=== PATIENT | male | born 1935 | race Caucasian/White ===

== ENCOUNTER → 2016-10-14 | Outpatient (CLI) | payer MEDICARE, OTHER | LOC: MW.CHFP 08:00 | PROVIDERS: ATTEND Student in an Organized Health Care Education/Training Program | DX: Z51.81 Encounter for therapeutic drug level monitoring (principal); Z79.01 Long term (current) use of anticoagulants; I63.512 Cerebral infarction due to unspecified occlusion or stenosis of left middle cerebral artery | CPT/HCPCS: 85610; 99211 ==

== ENCOUNTER → 2016-11-04 | Outpatient (CLI) | payer MEDICARE, OTHER | LOC: MW.CHFP 08:00 | PROVIDERS: ATTEND Student in an Organized Health Care Education/Training Program | DX: Z51.81 Encounter for therapeutic drug level monitoring (principal); Z79.01 Long term (current) use of anticoagulants; I63.50 Cerebral infarction due to unspecified occlusion or stenosis of unspecified cerebral artery; I63.512 Cerebral infarction due to unspecified occlusion or stenosis of left middle cerebral artery | CPT/HCPCS: 85610; 99211 ==

== ENCOUNTER → 2016-11-18 | Outpatient (CLI) | payer MEDICARE, OTHER | LOC: MW.CHFP 08:00 | PROVIDERS: ATTEND Student in an Organized Health Care Education/Training Program | DX: Z51.81 Encounter for therapeutic drug level monitoring (principal); Z79.01 Long term (current) use of anticoagulants; I63.50 Cerebral infarction due to unspecified occlusion or stenosis of unspecified cerebral artery; I63.512 Cerebral infarction due to unspecified occlusion or stenosis of left middle cerebral artery | CPT/HCPCS: 85610; 99211 ==

== ENCOUNTER 2019-09-21 01:20 | Emergency (ER) | payer MEDICARE, OTHER ==
--- NOTE | 2019-09-21 01:38 | EDM.PDOC ---
ED HPI GENERAL MEDICAL PROBLEM - General Chief Complaint: Neurological Problem Stated Complaint: AMB Time Seen by Provider: 09/21/19 01:22 Source of Information: Reports: Patient, Family History Limitations: Reports: No Limitations - History of Present Illness INITIAL COMMENTS - FREE TEXT/NARRATIVE: 84-year-old male with history of stroke presents with fleeting vertigo. The patient was in his bed and had about 20 minutes of a sense of room spinning and "pictures being in places that should not be." This abruptly went away and then about a half an hour later he had a 15-minute episode of the same thing. During this time he had no weakness or numbness nausea or vomiting. No vision changes or confusion. He denies any recent chest pain falls, incoordination, dysuria or fevers. Patient does have a history of stroke with no deficits. He does take Coumadin for this reason. The patient is also undergone triple bypass previously. 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: Reports: IV/IO, Other (see below) Other 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: blood sugar - Related Data Allergies Allergy/AdvReac Type Severity Reaction Status Date / Time No Known Allergies Allergy Verified 09/21/19 01:25 Home Meds: Home Meds Aspirin [Giovany Chewable] 81 mg PO DAILY 12/03/13 [History] Metoprolol Tartrate [Lopressor] 25 mg PO BID 12/03/13 [History] Rosuvastatin [Crestor] 40 mg PO QPM 12/03/13 [History] Latanoprost [Xalatan 0.005% Ophth Soln] 1 drop EYEBOTH BEDTIME 09/21/19 [History ] Warfarin [Coumadin] 2.5 mg PO ASDIRECTED 09/21/19 [History] Warfarin [Coumadin] 5 mg PO ASDIRECTED 09/21/19 [History] Zolpidem [Ambien] 0 mg PO BEDTIME PRN 09/21/19 [History] ED ROS GENERAL - Review of Systems Review Of Systems: Comprehensive ROS is negative, except as noted in HPI. ED EXAM, GENERAL - Physical Exam Exam: See Below Free Text/Narrative:: General: No acute distress. Comfortable. Heent: Examination revealed no pallor, no icterus, no lymphadenopathy. The patient normal posterior pharynx, moist mucous membranes. Neck: Supple. No JVD. No rigidity. Heart: Normal rate and rhythm. No murmurs appreciated. Lungs: Bilaterally clear to auscultation. No focal findings. Abdomen: The patient had bowel sounds present, nontender, nondistended, soft, no CVA tenderness. Neuro: Pt alert and oriented. PERRL. EOMI. Strength maintained in all four extremities. Good evaluator strength. Normal phonation without evidence of receptive or expressive pathology. No facial droop. biomedical engineering technician 2-12 intact. Normal reflexes BLEs (2+ patellar). Negative clonus. Normal power hip flexion. Normal finger to nose and rapid alternating hand movements bilaterally. Normal power below knee, plntar and dorsiflexion of the foot. No clonus BLEs. Skin: Exposed areas appeared normally perfused, warm, normal color with no meaningful rashes or lesions. Extremities: Peripheral examination revealed no pedal edema. Peripheral pulses were 2+.. EKG INTERPRETATION EKG Interpretation Comments: EKG time 1:21 AM. Atrial fibrillation rate [address] depression V5. Trace ST depression in aVF. QRS interval normal. QTc 450. No clear evidence of regional ischemia. Course - Vital Signs Text/Narrative:: Patient presents with 2 discrete episodes of vertigo while sitting in bed and moving his head. The first lasted 20 or 25 minutes and the second about 15 minutes. During his episodes there was no weakness or numbness or confusion or vision changes or any other symptoms suggestive of stroke. Furthermore the symptoms completely abated in between episodes and he has no symptoms here whatsoever. His neurological exam here is normal. It is possible to have intermittent symptoms like this for perhaps a flow dependent lesion, is highly unlikely. In having a stroke with vertiginous symptoms only is already highly highly unlikely. Accordingly, the patient is at very low risk for stroke given this presentation. Patient was watched in the emergency department for continued symptoms. Completely normal ambulation without any dizziness weakness or ataxia. Work-up is otherwise unremarkable. Patient will follow with primary care as needed and return to emergency with any worsening. Last Recorded V/S: Last Vital Signs Temp 97.1 F 09/21/19 01:22 Pulse 83 09/21/19 02:46 Resp 18 09/21/19 02:46 BP 147/62 H 09/21/19 02:46 Pulse Ox 98 09/21/19 02:46 - Orders/Labs/Meds Orders: Active Orders 24 hr Category Date Time Status UA W/ALBA RFLX IF INDICATED [URIN] Stat Lab 09/21/19 01:23 Ordered Labs: Laboratory Tests 09/21/19 09/21/19 09/21/19 Range/Units 01:33 01:33 01:33 WBC 6.73 (4.0-11.0) K/uL RBC 4.42 L (4.50-5.90) M/uL Hgb 13.8 (13.0-17.0) g/dL Hct 42.7 (38.0-50.0) % MCV 96.6 (80.0-98.0) fL MCH 31.2 (27.0-32.0) pg MCHC 32.3 (31.0-37.0) g/dL RDW Std Deviation 49.0 (28.0-62.0) fl RDW Coeff of Ludivina 14 (11.0-15.0) % Plt Count 168 (150-400) K/uL MPV 10.10 (7.40-12.00) fL Neut % (Auto) 59.5 (48.0-80.0) % Lymph % (Auto) 21.0 (16.0-40.0) % [place] % (Auto) 14.1 (0.0-15.0) % Eos % (Auto) 4.8 (0.0-7.0) % Baso % (Auto) 0.6 (0.0-1.5) % Neut # (Auto) 4.0 (1.4-5.7) K/uL Lymph # (Auto) 1.4 (0.6-2.4) K/uL [place] # (Auto) 1.0 H (0.0-0.8) K/uL Eos # (Auto) 0.3 (0.0-0.7) K/uL Baso # (Auto) 0.0 (0.0-0.1) K/uL Nucleated RBC % 0.0 /100WBC Nucleated RBCs # 0 K/uL INR 2.70 Sodium 141 (136-148) mmol/L Potassium 3.5 (3.5-5.1) mmol/L Chloride 104 (98-107) mmol/L Carbon Dioxide 25.5 (21.0-32.0) mmol/L BUN 16 (7.0-18.0) mg/dL Creatinine 1.2 (0.8-1.3) mg/dL Est Cr Clr Drug Dosing 39.86 mL/min Estimated GFR (MDRD) 57.7 ml/min Glucose 117 H (74-106) mg/dL Calcium 8.3 L (8.5-10.1) mg/dL Total Bilirubin 0.4 (0.2-1.0) mg/dL AST 44 H (15-37) IU/L ALT 54 (14-63) IU/L Alkaline Phosphatase 54 (46-116) U/L Total Protein 7.2 (6.4-8.2) g/dL Albumin 3.8 (3.4-5.0) g/dL Globulin 3.4 (2.6-4.0) g/dL Albumin/Globulin Ratio 1.1 (0.9-1.6) Departure - Departure Time of Disposition: 02:52 Disposition: Home, Self-Care 01 Preliminary Cause of *Q: Sepsis & Multi System Organ Failure Condition: Good Clinical Impression: Vertigo - Discharge Information Referrals: PCP,None [Primary Care Provider] - Forms: ED Department Discharge Additional Instructions: You have suffered some vertigo. There are many causes of vertigo. Much more often than not, vertigo is not caused by a stroke. There is no indication that your vertigo was caused by a stroke because it was short-lived and went away completely. You already taking medicine to help reduce the chances of stroke. You should follow-up with your doctor about this. It is important however that you return to emergency immediately if you have vertigo with other symptoms like weakness, confusion, vision changes or other similar symptoms. The following information is given to patients seen in the emergency department who are being discharged to home. This information is to outline your options for follow-up care. We provide all patients seen in our emergency department with a follow-up referral. The need for follow-up, as well as the timing and circumstances, are variable depending upon the specifics of your emergency department visit. If you don't have a primary care physician on staff, we will provide you with a referral. We always advise you to contact your personal physician following an emergency department visit to inform them of the circumstance of the visit and for follow-up with them and/or the need for any referrals to a consulting specialist. The emergency department will also refer you to a specialist when appropriate. This referral assures that you have the opportunity for follow-up care with a specialist. All of these measure are taken in an effort to provide you with optimal care, which includes your follow-up. Under all circumstances we always encourage you to contact your private physician who remains a resource for coordinating your care. When calling for follow-up care, please make the office aware that this follow-up is from your recent emergency room visit. If for any reason you are refused follow-up, please contact the [facility] at and asked to speak to the emergency department charge nurse. Sepsis Event Note - Evaluation Sepsis Screening Result: No Definite Risk - Focused Exam Vital Signs: Vital Signs Temp Pulse Resp BP Pulse Ox 09/21/19 02:46 83 18 147/62 H 98 09/21/19 01:52 67 12 140/74 94 L 09/21/19 01:35 71 20 183/81 H 97 09/21/19 01:22 97.1 F 65 21 H 179/112 H 95 Date Exam was Performed: 09/21/19 Time Exam was Performed: 02:51 - My Orders Last 24 Hours: My Active Orders 09/21/19 01:23 UA W/ALBA RFLX IF INDICATED [URIN] Stat - Assessment/Plan Last 24 Hours: My Active Orders 09/21/19 01:23 UA W/ALBA RFLX IF INDICATED [URIN] Stat
[2019-09-21 01:59] LABS: CARBON DIOXIDE,CO2 25.5 mmol/L (21.0-32.0); POTASSIUM,K 3.5 mmol/L (3.5-5.1)
== END 2019-09-21 03:10 | disposition home or self-care (01) ==
LOC: MW.ED 01:20
DX: R42 Dizziness and giddiness (principal); Z79.01 Long term (current) use of anticoagulants; Z79.82 Long term (current) use of aspirin; Z79.899 Other long term (current) drug therapy; Z86.73 Personal history of transient ischemic attack (TIA), and cerebral infarction without residual deficits
CPT/HCPCS: 36415; 80053; 85025; 85610; 93005; 99284-25